=== PATIENT | female | born 1940 | race Caucasian/White ===

== ENCOUNTER 2016-11-21 13:49 | Observation (INO) | payer OTHER ==
[~2016-11-21] VITALS: Ht 160 cm; Wt 66.1 kg
[2016-11-21 14:32] LABS: ADD MIUA? YES; BILIRUBIN NEGATIVE; BLOOD NEGATIVE; COLOR YELLOW ((YELLOW)); GLUCOSE (STRIP) NEGATIVE; KETONES NEGATIVE; LEUKOCYTES NEGATIVE; NITRITE NEGATIVE; PROTEIN (STRIP) NEGATIVE; UROBILINOGEN 0.2 MG/DL (0.2-1.0)
[2016-11-21 14:49] LABS: CRYSTALS PRESENT; RED BLOOD CELLS 0-5 /HPF (0-5); URIC ACID CRYSTALS 3+ /HPF; WHITE BLOOD CELLS 0-5 /HPF (0-5)
[2016-11-21 14:50] LABS: BACTERIA RARE /HPF; EPITHELIAL CELLS NONE SEEN /HPF; MUCUS 1+ /LPF; UCUL ADDED? NO
[2016-11-21 14:58] LABS: HEMATOCRIT 37.9 % (36.0-46.0); MCH 30.6 PG (29.0-34.0); MCHC 31.9 G/DL (30.0-36.0); MCV 95.7 FL (83-99); PLATELET COUNT 243 K/uL (156-360); RBC DIS.WIDTH-CV 12.8 % (11.8-14.6); RBC DIS.WIDTH-SD 43.6 % (39-53); RED BLOOD COUNT 3.96 M/uL (3.80-5.20); WHITE BLOOD COUNT 18.7 K/uL (4.1-10.2)
[2016-11-21 15:18] LABS: CHLORIDE 110 mEq/L (99-109); POTASSIUM 4.1 mEq/L (3.7-5.4); SODIUM 142 mEq/L (136-147)
[2016-11-21 15:20] LABS: GLUCOSE 102 mg/dL (70-99)
[2016-11-21 15:21] LABS: ANION GAP 6 MEQ/L (2-14)
[2016-11-21 15:24] LABS: GFR ESTIMATE (CALCULATED) > 59 mL/min/
[2016-11-21 15:25] LABS: UREA NITROGEN (BUN) 31 mg/dL (9-23)
[2016-11-21 18:48] LABS: TOTAL BILIRUBIN 0.3 mg/dL (0.0-1.0)
[2016-11-21 18:49] LABS: ALKALINE PHOSPHATASE 62 IU/L (3-129)
[2016-11-21 18:52] LABS: DIRECT BILIRUBIN 0.1 mg/dL (0.0-0.3)
[2016-11-21] MEDS ORDERED: PREDNISOLONE AC15 ML RIGHT EYE (19:06)
[2016-11-21] MEDS ORDERED: SIMVASTATIN20 MG PO (19:06)
[2016-11-21] MEDS ORDERED: THERAGRAN1 TABLET PO (19:06)
[2016-11-21] MEDS ORDERED: TOLTERODINE TART4 MG PO (19:06)
[2016-11-21] MEDS ORDERED: LO-DOSE ASPIRIN81 M1 PO (19:07)
[2016-11-21] MEDS ORDERED: ZYRTEC10 M3 PO (19:07)
[2016-11-21] MEDS ORDERED: NATURAL VEGETA PO (19:07)
[2016-11-21] MEDS ORDERED: VITAMIN D-32000 UNI2 PO (19:08)
[2016-11-21] MEDS ORDERED: ALEVE220 MG PO (19:08)
[2016-11-21] MEDS ORDERED: VITAMIN C500 M1 PO (19:08)
[2016-11-21 19:33] LABS: NRBC (%) 0.4 /100 WBC (0-0)
[2016-11-21 19:55] LABS: ABS NEUTROPHIL COUNT 7.85; BASOPHIL COUNT 0.1 K/uL (0-0.1); EOSINOPHIL (%) 1.4 % (0-5); EOSINOPHIL COUNT 0.3 K/uL (0-0.3); IMMATURE GRANULOCYTE (%) 0.2 % (0.0-0.7); IMMATURE GRANULOCYTE COUNT 0.4 K/uL; LYMPHOCYTE COUNT 10.9 K/uL (1.0-2.8); MONOCYTE (%) 7.1 % (3-12); MONOCYTE COUNT 1.3 K/uL (0-0.8); NEUTROPHIL (%) 33.4 % (45-76); NEUTROPHIL COUNT 6.3 K/uL (1.8-6.4)
[2016-11-21 22:46] VITALS: BP 132/92
[2016-11-22 03:54] VITALS: BP 112/56
[2016-11-22 07:58] VITALS: BP 130/59
[2016-11-22 08:14] LABS: HEMATOCRIT 32.2 % (36.0-46.0); MCH 31.5 PG (29.0-34.0); MCHC 32.3 G/DL (30.0-36.0); MCV 97.6 FL (83-99); MEAN PLAT.VOLUME 10.2 uM^3 (9.5-12.4); PLATELET COUNT 195 K/uL (156-360); RBC DIS.WIDTH-CV 13.4 % (11.8-14.6); RBC DIS.WIDTH-SD 47.4 % (39-53); WHITE BLOOD COUNT 17.2 K/uL (4.1-10.2)
[2016-11-22 08:17] LABS: ANION GAP 3 MEQ/L (2-14); CHLORIDE 114 MEQ/L (99-109); GFR ESTIMATE (CALCULATED) > 59 mL/min/; GLUCOSE 90 mg/dL (70-99); SAMPLE HEMOLYSIS CHECK 0; SAMPLE ICTERIC CHECK 0; SAMPLE LIPEMIA CHECK 0; SODIUM 144 MEQ/L (136-147); UREA NITROGEN (BUN) 22 mg/dL (9-23)
[2016-11-22 09:55] LABS: ABS NEUTROPHIL COUNT 6.35; EOSINOPHIL (%) 1.6 % (0-5); EOSINOPHIL ABS CT 0.34; EOSINOPHIL COUNT 0.3 K/uL (0-0.3); IMMATURE GRANULOCYTE (%) 0.2 % (0.0-0.7); LYMPHOCYTE COUNT 11.3 K/uL (1.0-2.8); MACROCYTES OCC; MONOCYTE (%) 4.5 % (3-12); MONOCYTE COUNT 0.8 K/uL (0-0.8); NEUTROPHIL (%) 27.5 % (45-76); NEUTROPHIL COUNT 4.7 K/uL (1.8-6.4); NRBC (%) 0.3 /100 WBC (0-0); PLAT.SUFFICIENCY ADEQUATE
== END 2016-11-22 13:32 | disposition home or self-care (01) ==
LOC: EME 13:49 → 3EAST 21:08 → EDOF 21:08 → 3EAST 22:43
PROVIDERS: Family Medicine
DX: N20.2 Calculus of kidney with calculus of ureter (principal); C91.10 Chronic lymphocytic leukemia of B-cell type not having achieved remission; E78.5 Hyperlipidemia, unspecified; Z79.82 Long term (current) use of aspirin; D72.829 Elevated white blood cell count, unspecified; R79.89 Other specified abnormal findings of blood chemistry; Z82.49 Family history of ischemic heart disease and other diseases of the circulatory system; Z91.013 Allergy to seafood
CPT/HCPCS: 74176; 80048; 80076; 81003; 85025; 85027; 87086; 99281; 99285; G0378; J0696; J1885; J2270; J2405; J7030; J7050

== ENCOUNTER 2017-07-14 08:27 | Emergency (ER) | payer OTHER ==
[~2017-07-14] VITALS: Ht 160 cm; Wt 65.3 kg
[~2017-07-14 08:27] MED LIST: ALEVE220 MG PO; LO-DOSE ASPIRIN81 M1 PO; NATURAL VEGETA PO; PREDNISOLONE AC15 ML RIGHT EYE; SIMVASTATIN20 MG PO; THERAGRAN1 TABLET PO; TOLTERODINE TART4 MG PO; VITAMIN C500 M1 PO; VITAMIN D-32000 UNI2 PO; ZYRTEC10 M3 PO
[2017-07-14 09:04] LABS: HEMATOCRIT 37.9 % (36.0-46.0); MCH 30.2 PG (29.0-34.0); MCHC 31.7 G/DL (30.0-36.0); MCV 95.5 FL (83-99); MEAN PLAT.VOLUME 9.4 uM^3 (9.5-12.4); PLATELET COUNT 210 K/uL (156-360); RBC DIS.WIDTH-CV 13.1 % (11.8-14.6); RBC DIS.WIDTH-SD 46.3 % (39-53); RED BLOOD COUNT 3.97 M/uL (3.80-5.20); WHITE BLOOD COUNT 19.1 K/uL (4.1-10.2)
[2017-07-14 09:12] LABS: CHLORIDE 108 mEq/L (99-109); POTASSIUM 3.6 mEq/L (3.7-5.4); SODIUM 139 mEq/L (136-147)
[2017-07-14 09:14] LABS: GLUCOSE 105 mg/dL (70-99)
[2017-07-14 09:15] LABS: ANION GAP 6 MEQ/L (2-14)
[2017-07-14 09:18] LABS: GFR ESTIMATE (CALCULATED) > 59 mL/min/; UREA NITROGEN (BUN) 23 mg/dL (9-23)
[2017-07-14 10:09] LABS: ATYPICAL LYMPHOCYTE 2.6 %; BAND NEUTROPHILS 0.9 % (0-8.0); EOSINOPHIL ABS CT 0.3; EOSINOPHILS 1.8 % (0-5.0); INSTRUMENT ABS NEUTROPHIL CT 5.7 K/uL; LYMPHOCYTES 52.6 % (15.0-45.0); PLAT.SUFFICIENCY ADEQUATE
[2017-07-14 13:04] LABS: ADD MIUA? YES; BILIRUBIN NEGATIVE; BLOOD NEGATIVE; COLOR YELLOW ((YELLOW)); GLUCOSE (STRIP) NEGATIVE; KETONES 20; LEUKOCYTES NEGATIVE; NITRITE NEGATIVE; PROTEIN (STRIP) NEGATIVE; UROBILINOGEN 0.2 MG/DL (0.2-1.0)
[2017-07-14 13:08] LABS: BACTERIA NONE SEEN /HPF; EPITHELIAL CELLS RARE /HPF; MUCUS 1+ /LPF; WHITE BLOOD CELLS 0-5 /HPF (0-5)
[2017-07-14] MEDS ORDERED: ZOFRAN4 MG PO (13:48)
[2017-07-14] MEDS ORDERED: PERCOCET 5/31 TABLET PO (13:48)
[2017-07-14] MEDS ORDERED: FLOMAX0.4 MG PO (13:48)
[2017-07-14 14:31] VITALS: BP 163/51
== END 2017-07-14 14:52 | disposition home or self-care (01) ==
LOC: EME 08:27
PROVIDERS: Emergency Medicine
DX: N20.2 Calculus of kidney with calculus of ureter (principal); K80.20 Calculus of gallbladder without cholecystitis without obstruction; Z85.42 Personal history of malignant neoplasm of other parts of uterus; Z90.710 Acquired absence of both cervix and uterus; Z87.442 Personal history of urinary calculi; E78.5 Hyperlipidemia, unspecified; Z79.82 Long term (current) use of aspirin
CPT/HCPCS: 74176; 80048; 81003; 85025; 99281; 99285; J1885; J2270; J2405; J7030

== ENCOUNTER → 2017-10-19 | Outpatient (CLI) | payer MEDICARE, OTHER ==
[~2017-10-19] MED LIST changes: +FLOMAX0.4 MG PO; +PERCOCET 5/31 TABLET PO; +ZOFRAN4 MG PO
== END | disposition home or self-care (01) ==
LOC: CDC 14:32
DX: Z01.810 Encounter for preprocedural cardiovascular examination (principal); N20.0 Calculus of kidney
CPT/HCPCS: 93000